=== PATIENT | female | born 1990 | race Caucasian/White ===

== ENCOUNTER 2020-06-14 15:10 | Inpatient (IN) | payer MEDICAID, SELFPAY ==
[~2020-06-14] VITALS: Ht 167.6 cm; Wt 90.7 kg
[2020-06-15] MEDS ORDERED: TERBUTALINE SULFATE 1 MG/ML VIAL SUBCUT ONE (12:45)
[2020-06-15] MEDS ORDERED: OXYTOCIN/0.9 % SODIUM CHLORIDE 1,000 ML IV SCH ×2 (12:45→23:45)
[2020-06-15] MEDS ORDERED: LR 1,000 ML IV SCH (12:45)
[2020-06-15] MEDS ORDERED: DINOPROSTONE 10 MG SUPP VG ONE ×2 (12:45→13:15)
[2020-06-15 13:25] LABS: BASOPHILS % (AUTO) 0.3 % (0.0-2.0); EOSINOPHILS % (AUTO) 0.4 % (0.0-4.0); HEMATOCRIT 38.6 % (36-48); HEMOGLOBIN 13.6 g/dL (12.0-16.0); LYMPHOCYTES % (AUTO) 20.7 % (20.5-51.5); MEAN CORPUSCULAR HEMOGLOBIN 34 pg (27-31); MEAN CORPUSCULAR HGB CONC 35 % (32-36); MEAN CORPUSCULAR VOLUME 96 fL (79.0-98.0); MONOCYTES # (AUTO) 0.5 K/uL (0.0-1.0); MONOCYTES % (AUTO) 5.2 % (1.7-9.3); NEUTROPHILS # (AUTO) 7.2 K/uL (1.8-7.7); NEUTROPHILS % (AUTO) 73.4 % (40.0-70.0); PLATELET COUNT (AUTO) 155 K/uL (130-430); RED BLOOD CELL COUNT(AUTO) 4.04 MIL/uL (4.2-6.2); RED CELL DISTRIBUTION WIDTH 14.2 % (9.0-15.0); WHITE BLOOD COUNT (AUTO) 9.8 K/uL (4.8-10.8)
[2020-06-15 17:25] VITALS: BP_SYST 121
[2020-06-15] MEDS ORDERED: DIPH-TET-PERTUS Vaccine 0.5 ML VIAL (ADACEL) I.M. ONE (19:30)
[2020-06-15] MEDS ORDERED: FLU VACC QS2020-21 (6 mos & up) 0.5 ML/SYRINGE I.M. PRN (19:30)
[2020-06-15] MEDS ORDERED: TEMAZEPAM 15 MG CAPSULE PO PRN (21:00)
[2020-06-15] MEDS: NALBUPHINE HCL 10 MG/ML AMP IVP PRN ×2 (21:40→23:00)
[2020-06-15] MEDS ORDERED: OXYCODONE/ACETAMINOPHEN 5-325 TABLET PO PRN ×2 (23:45)
[2020-06-15] MEDS ORDERED: ANUSOL 1 EA SUPP.RECT (PREPARATION H) RC PRN (23:45)
[2020-06-15] MEDS ORDERED: SENNOSIDES/DOCUSATE SODIUM 1 TAB TABLET(SENOKOT-S) PO PRN (23:45)
[2020-06-15] MEDS ORDERED: OXYTOCIN/0.9 % SODIUM CHLORIDE 1,000 ML IV ONE (23:45)
[2020-06-15] MEDS ORDERED: HYDROCORTISONE 0.5% CREAM 28.4 GM CREAM.GM. TP PRN (23:45)
[2020-06-15] MEDS ORDERED: WITCH HAZEL LEAF 1 MED.PAD MED.PAD TP PRN (23:45)
[2020-06-15] MEDS ORDERED: METHYLERGONOVINE MALEATE 0.2 MG TABLET PO PRN (23:45)
[2020-06-15] MEDS ORDERED: DERMOPLAST SPRAY TP PRN (23:45)
[2020-06-15] MEDS ORDERED: LANOLIN 7 GM OINT. TP PRN (23:45)
[2020-06-16] MEDS: IBUPROFEN 800 MG TABLET PO PRN ×5 (00:15→23:46)
[2020-06-16 06:51] LABS: HEMATOCRIT 34.9 % (36-48); HEMOGLOBIN 12.1 g/dL (12.0-16.0)
[2020-06-16] MEDS: DOCUSATE SODIUM 100 MG CAPSULE PO PRN (12:11)
[2020-06-16] MEDS ORDERED: DINOPROSTONE 10 MG SUPP VG ONE (15:07)
[2020-06-17] MEDS: IBUPROFEN 800 MG TABLET PO PRN (06:01)
[2020-06-17] MEDS: DOCUSATE SODIUM 100 MG CAPSULE PO PRN (06:02)
[2020-06-17] MEDS ORDERED: DIPH-TET-PERTUS Vaccine 0.5 ML VIAL (ADACEL) I.M. PRN (11:45)
[2020-06-19 19:07] LABS: FTA-Ab (T PALLIDUM) Non Reactive (Non Reactive)
== END 2020-06-17 12:10 | disposition home or self-care (01) | DRG 560 ==
LOC: SPU 06-15 07:48 → EDBD 06-15 07:48
PROVIDERS: ADMIT Obstetrics & Gynecology; ATTEND Obstetrics & Gynecology
PROC: 10E0XZZ Delivery of Products of Conception, External Approach (ICD-10-PCS; principal; 2020-06-15)
DX: O69.81X0 Labor and delivery complicated by cord around neck, without compression, not applicable or unspecified (principal); Z3A.41 41 weeks gestation of pregnancy; Z37.0 Single live birth; Z20.822 Contact with and (suspected) exposure to COVID-19
CPT/HCPCS: 36415; 85018-TC; 85025; 86592; 86780; 86886; 86900; 86901; 90715; J2300; J2590